=== PATIENT | female | born 2000 | race Caucasian/White ===

== ENCOUNTER 2025-06-04 19:00 | Inpatient (IN) | payer BC ==
[2025-06-05 18:25] VITALS: BMI 26.6
[2025-06-05] MEDS ORDERED: HYDROcodone/Acetaminophen 5/325 mg Tablet PO PRN ×2 (18:26)
[2025-06-05] MEDS ORDERED: Ibuprofen 800 MG TAB PO PRN (18:26)
[2025-06-05] MEDS ORDERED: Lidocaine 1% (PF) 30 ML VIAL SC PRN (18:26)
[2025-06-05] MEDS ORDERED: hydrALAZINE 20 MG/ML VIAL SLOW IVP PRN (18:26)
[2025-06-05] MEDS ORDERED: Ondansetron PF 4 MG/2 ML Vial IVP PRN (18:26)
[2025-06-05] MEDS ORDERED: Oxytocin 30 units/NS 500 ML 500 ML IV SCH ×2 (18:26)
[2025-06-05 18:38] LABS: Hematocrit 34.5 % (34.9-44.5); Hemoglobin 11.9 g/dL (12.0-15.5); Mean Corpuscular Hemoglobin 28.2 pg (27.0-33.0); Mean Corpuscular Volume 81.8 fL (81.6-98.3); Platelet Count 217 10x3/uL (150-450); Red Blood Cell (RBC) Count 4.22 10x6/uL (3.90-5.03); White Blood Cell (WBC) Count 13.74 10x3/uL (3.5-10.5)
[2025-06-05 19:19] LABS: Hep B Surf Ag - L&D Non-Reactive S/CO (NonReactive)
[2025-06-05 19:20] LABS: Syphilis Antibody Index 0.06 S/CO (<1.00 Non-Reactive)
[2025-06-06] MEDS: fentaNYL/Ropivacaine Epidural 100 ML ONE (00:19)
[2025-06-06] MEDS ORDERED: diphenhydrAMINE 50 MG/ML VIAL IVP PRN (00:26)
[2025-06-06] MEDS ORDERED: Acetaminophen 325 MG TAB PO PRN (00:26)
[2025-06-06] MEDS ORDERED: Ondansetron PF 4 MG/2 ML Vial IVP PRN ×2 (00:26→12:19)
[2025-06-06] MEDS ORDERED: Communication Order-Pharmacy FS SCH (00:30)
[2025-06-06] MEDS ORDERED: fentaNYL 2 mcg/Ropivacaine 0.2% Epidural 100 ML CADD EPIDURAL SCH (00:30)
[2025-06-06] MEDS ORDERED: HYDROcodone/Acetaminophen 5/325 mg Tablet PO PRN ×2 (12:19)
[2025-06-06] MEDS ORDERED: Preparation H Ointment 28 GM TUBE PR PRN (12:19)
[2025-06-06] MEDS ORDERED: Benzocaine-Menthol 82.5 ML CAN TOP PRN (12:19)
[2025-06-06] MEDS ORDERED: Milk Of Magnesia 30 ML UDCUP PO PRN (12:19)
[2025-06-06] MEDS ORDERED: hydrALAZINE 20 MG/ML VIAL SLOW IVP PRN (12:19)
[2025-06-06] MEDS ORDERED: Lanolin Ointment 7 GM TUBE TOP PRN (12:19)
[2025-06-06] MEDS ORDERED: Bisacodyl 10 MG SUPP PR PRN (12:19)
[2025-06-06] MEDS ORDERED: Oxytocin 30 units/NS 500 ML 500 ML IV SCH (12:19)
[2025-06-06] MEDS ORDERED: diphenhydrAMINE 25 MG CAP PO PRN (12:19)
[2025-06-06] MEDS: Ferrous Sulfate 325 MG TAB PO SCH (13:52)
[2025-06-06] MEDS: Ibuprofen 800 MG TAB PO SCH (14:20)
[2025-06-06] MEDS ORDERED: Bupivacaine/Epinephrine 0.25% 30 ML VIAL ONE (20:09)
[2025-06-07 08:24] VITALS: BP 118/70; TEMP 97.8
== END 2025-06-07 16:05 | disposition home or self-care (01) | DRG 807 ==
LOC: CSHLD 06-05 17:56 → CSHPED 06-06 12:00
PROVIDERS: ADMIT Obstetrics & Gynecology; ATTEND Obstetrics & Gynecology
PROC: 10D07Z6 Extraction of Products of Conception, Vacuum, Via Natural or Artificial Opening (ICD-10-PCS; principal; 2025-06-06)
PROC: 0KQM0ZZ Repair Perineum Muscle, Open Approach (ICD-10-PCS; 2025-06-06)
DX: O48.0 Post-term pregnancy (principal); Z37.0 Single live birth; Z3A.40 40 weeks gestation of pregnancy; O70.1 Second degree perineal laceration during delivery
CPT/HCPCS: 36415; 85027; 86780; 86850; 86900; 86901; 87340